=== PATIENT | male | born 1990 | race Two or more races ===

== ENCOUNTER 2023-07-03 10:36 | Emergency (ER) | payer OTHER ==
[~2023-07-03] VITALS: Ht 180.3 cm; Wt 102.0 kg
[2023-07-03] MEDS ORDERED: MIRT-93 PO (12:19)
[2023-07-03] MEDS ORDERED: DIPH25CA66 PO (12:19)
[2023-07-03 12:37] VITALS: BP 141/79; PULSE 93; RESP 18; TEMP 98.7; O2SAT 99
== END 2023-07-03 12:39 | disposition home or self-care (01) ==
LOC: ER 10:36
DX: F41.9 Anxiety disorder, unspecified (principal); F32.9 Major depressive disorder, single episode, unspecified; Z76.0 Encounter for issue of repeat prescription

== ENCOUNTER 2023-11-26 10:05 | Emergency (ER) | payer OTHER ==
[~2023-11-26] VITALS: Ht 180.3 cm; Wt 104.5 kg
[~2023-11-26 10:05] MED LIST: DIPH25CA66 PO; MIRT-93 PO
[2023-11-26] MEDS ORDERED: LORazepam 0.5 MG TAB PO ONE (14:45)
[2023-11-26] MEDS ORDERED: ASPirin 81 mg TAB PO ONE (14:45)
[2023-11-26] MEDS ORDERED: ACETAMINOPHEN 325 MG TAB PO ONE (14:45)
[2023-11-26 15:23] LABS: Basophils # (auto) 0 10 ^3/uL (0-0.2); Basophils % (auto) 0.4 % (0.0-2.0); Eosinophils # (auto) 0.1 10 ^3/uL (0-0.8); Monocytes # (auto) 0.4 10 ^3/uL (0-1.3); Red Cell Distribution Width 15.6 % (11.8-14.3)
[2023-11-26 15:26] LABS: Eosinophils % (auto) 1.5 % (0.0-7.0); Hematocrit 41.9 % (41.0-53.0); Hemoglobin 13.5 g/dL (13.5-17.5); Lymphocytes % (auto) 30.3 % (10.0-50.0); Mean Corpuscular Hemoglobin 26.6 pg (28.0-32.0); Mean Corpuscular Hgb Conc. 32.3 g/dL (32.0-36.0); Mean Corpuscular Volume 82.4 fL (80.0-100.0); Monocytes % (auto) 6.4 % (0.0-12.0); Neutrophils % (auto) 61.4 % (37.0-80.0); Nucleated Red Blood Cells % 0.1 %; Red Blood Cells 5.09 10^6/uL (4.5-5.90); White Blood Cell 6.6 10^3/uL (4.4-10.8)
[2023-11-26 15:42] LABS: Acetaminophen < 2.0 UG/ML (10.0-20.0)
[2023-11-26 15:43] LABS: Alanine Aminotransferase 19 U/L (7-40); Albumin 4.6 g/dL (3.2-4.8); Alkaline Phosphatase 92 U/L (46-116); Anion Gap 8 (5-15); Aspartate Aminotransferase 22 U/L (13-40); Blood Alcohol 23.7 mg/dL (<10); Blood Urea Nitrogen 13 mg/dL (9-23); Calcium 9.2 mg/dL (8.5-10.1); Carbon Dioxide 27 mmol/L (20-30); Chloride 110 mmol/L (98-107); Glucose 97 mg/dL (74-106); Potassium 3.6 mmol/L (3.5-5.1); Sodium 145 mmol/L (136-145)
[2023-11-26 15:44] LABS: Bilirubin, Total 0.2 mg/dL (0.2-1.0); Total Protein 6.8 g/dL (5.7-8.2)
[2023-11-26 15:46] VITALS: BP 136/80; PULSE 93; RESP 17; O2SAT 100
[2023-11-26 15:53] LABS: Salicylate < 3.0 mg/dL (2.8-20.0)
[2023-11-26 16:57] VITALS: TEMP 97.8
== END 2023-11-26 21:31 | disposition home or self-care (01) ==
LOC: ER 10:05
DX: R10.31 Right lower quadrant pain (principal); F31.9 Bipolar disorder, unspecified
CPT/HCPCS: 36415; 71045; 80053; 80320; 80329; 84484; 85025